=== PATIENT | male | born 1975 | race African-American/Black ===

== ENCOUNTER 2021-04-15 16:24 | Observation (INO) | payer OTHER ==
[2021-04-15 16:37] LABS: Glucose,Whole Blood 226 mg/dL (75-99)
[2021-04-15] MEDS ORDERED: PANTOPRAZOLE 40 MG/10 ML VIAL IVP STA (16:55)
[2021-04-15] MEDS ORDERED: SODIUM CHLORIDE 0.9% 1,000 ML IV STA (16:55)
[2021-04-15] MEDS ORDERED: ONDANSETRON 4 MG/2 ML VIAL IVP STA (16:55)
[2021-04-15] MEDS ORDERED: KETOROLAC 15 MG/ML 1 ML VIAL IVP STA (16:55)
[2021-04-15 17:32] LABS: Basophils % (A) 0 %; Eosinophils # (A) 0.1 k/uL (0-0.7); Eosinophils % (A) 1 %; HCT 44.4 % (39.0-53.0); HGB 15.1 gm/dL (13.0-17.5); Lymphocytes # (A) 1.5 k/uL (1.0-4.8); Lymphocytes % (A) 10 %; MCH 30.3 pg (25.0-35.0); MCV 89.3 fL (80.0-100.0); Mean Platelet Volume 7.6; Monocytes # (A) 0.3 k/uL (0-1.0); Monocytes % (A) 2 %; Neutrophils # (A) 13.5 k/uL (1.3-7.7); Neutrophils % (A) 87 %; Platelet Count 461 k/uL (150-450); RBC 4.97 m/uL (4.30-5.90); RDW 12.6 % (11.5-15.5); WBC 15.6 k/uL (3.8-10.6)
[2021-04-15 17:46] LABS: Albumin 5.1 g/dL (3.5-5.0); Calcium 10.3 mg/dL (8.4-10.2); Potassium 4.4 mmol/L (3.5-5.1); Total Bilirubin 1.2 mg/dL (0.2-1.3); Total Protein 8.5 g/dL (6.3-8.2)
[2021-04-15 17:53] LABS: Prothrombin Time 10.3 sec (9.0-12.0)
[2021-04-15 17:55] LABS: Partial Thromboplastin Time 21.5 sec (22.0-30.0)
--- NOTE | 2021-04-15 18:29 | ED ---
Abdominal Pain HPI - General Chief Complaint: Abdominal Pain Stated Complaint: vomiting Time Seen by Provider: 04/15/21 16:46 Source: patient, police, RN notes reviewed Mode of arrival: ambulatory Limitations: no limitations - History of Present Illness Initial Comments: Patient is a 45-year-old -[place] male that presents to the emergency department complaining of abdominal pain in the epigastric and left upper quadrant region. He notes that he's been been vomiting and nauseous for the past several days. He notes that he's had a hard time drinking eating anything. She denied any history of ulcers heartburn heart attack. He noted that eating food and drinking makes the pain worse. She did appear to be in moderate discomfort and pain while sitting up in bed during exam and interview. He denied any blood in his vomit. He denied any constipation diarrhea. He denied any chest pain shortness breath headache fever fatigue chills. - Related Data Home Medications Medication Instructions Recorded Confirmed Atorvastatin [Lipitor] 20 mg PO HS 04/15/21 04/15/21 DULoxetine HCL [Cymbalta] 30 mg PO HS 04/15/21 04/15/21 Docusate [Colace] 100 mg PO BID 04/15/21 04/15/21 Insulin Glargine [Lantus] 50 unit SQ HS 04/15/21 04/15/21 Insulin Regular [HumuLIN R] See Protocol SQ ACHS 04/15/21 04/15/21 Ondansetron HCl [Zofran] 4 mg PO TID PRN 04/15/21 04/15/21 Pantoprazole Sodium [Protonix] 40 mg PO DAILY 04/15/21 04/15/21 Sucralfate [Carafate] 1 gm PO TID 04/15/21 04/15/21 hydroCHLOROthiazide 25 mg PO DAILY 04/15/21 04/15/21 lisinopriL 20 mg PO DAILY 04/15/21 04/15/21 metFORMIN HCL [Glucophage] 850 mg PO BID 04/15/21 04/15/21 Allergies Allergy/AdvReac Type Severity Reaction Status Date / Time No Known Allergies Allergy Verified 04/15/21 18:46 Review of Systems ROS Statement: Those systems with pertinent positive or pertinent negative responses have been documented in the HPI. ROS Other: All systems not noted in ROS Statement are negative. Past Medical History Past Medical History: Diabetes Mellitus History of Any Multi-Drug Resistant Organisms: None Reported Past Surgical History: No Surgical Hx Reported Past Psychological History: No Psychological Hx Reported Smoking Status: Former smoker Past Alcohol Use History: None Reported Past Drug Use History: None Reported General Exam Limitations: no limitations General appearance: alert, in no apparent distress Head exam: Present: atraumatic, normocephalic, normal inspection Eye exam: Present: normal appearance, PERRL, EOMI. Absent: scleral icterus, conjunctival injection, periorbital swelling Neck exam: Present: normal inspection Respiratory exam: Present: normal lung sounds bilaterally. Absent: respiratory distress, wheezes, rales, rhonchi, stridor Cardiovascular Exam: Present: regular rate, normal rhythm, normal heart sounds. Absent: systolic murmur, diastolic murmur, rubs, gallop, clicks GI/Abdominal exam: Present: soft, normal bowel sounds. Absent: distended, tenderness, guarding, rebound, rigid Extremities exam: Present: normal inspection, full ROM, normal capillary refill. Absent: tenderness, pedal edema, joint swelling, calf tenderness Neurological exam: Present: alert, oriented X3 Psychiatric exam: Present: normal affect, normal mood Skin exam: Present: warm, dry, intact, normal color. Absent: rash Course Vital Signs 04/15/21 16:31 Temperature 99.7 F H Pulse Rate 108 H Respiratory 17 Rate Blood Pressure 117/85 O2 Sat by Pulse 100 Oximetry Medical Decision Making - Medical Decision Making 45-year-old male complaining of upper abdominal pain in the epigastric and upper left quadrant. Labs, 1 L normal saline, 4 mg of Zofran, CT of the abdomen and pelvis, EKG, quality assurance monitor chassis, 15 mg of Toradol, 40 mg of pantoprazole ordered. Labs: White blood cells 15.6 BU when 35, creatinine 2.14 glucose 235, lactic acid 2.5 amylase 137. Case discussed with Dr. Taylor, patient will be admitted for observation. Dr. Estevez was consulted and will accept the admit with GI on consult. - Lab Data Result diagrams: 04/15/21 17:11 04/15/21 17:11 Lab Results 04/15/21 04/15/21 04/15/21 Range/Units 16:35 17:11 17:11 WBC 15.6 H (3.8-10.6) k/uL RBC 4.97 (4.30-5.90) m/uL Hgb 15.1 (13.0-17.5) gm/dL Hct 44.4 (39.0-53.0) % MCV 89.3 (80.0-100.0) fL MCH 30.3 (25.0-35.0) pg MCHC 34.0 (31.0-37.0) g/dL RDW 12.6 (11.5-15.5) % Plt Count 461 H (150-450) k/uL MPV 7.6 Neutrophils % 87 % Lymphocytes % 10 % Monocytes % 2 % Eosinophils % 1 % Basophils % 0 % Neutrophils # 13.5 H (1.3-7.7) k/uL Lymphocytes # 1.5 (1.0-4.8) k/uL Monocytes # 0.3 (0-1.0) k/uL Eosinophils # 0.1 (0-0.7) k/uL Basophils # 0.0 (0-0.2) k/uL PT (9.0-12.0) sec INR (<1.2) APTT (22.0-30.0) sec Sodium 136 L (137-145) mmol/L Potassium 4.4 (3.5-5.1) mmol/L Chloride 94 L (98-107) mmol/L Carbon Dioxide 29 (22-30) mmol/L Anion Gap 13 mmol/L BUN 35 H (9-20) mg/dL Creatinine 2.14 H (0.66-1.25) mg/dL Est GFR (CKD-EPI)AfAm 42 (>60 ml/min/1.73 sqM) Est GFR (CKD-EPI)NonAf 36 (>60 ml/min/1.73 sqM) Glucose 235 H (74-99) mg/dL POC Glucose (mg/dL) 226 H (75-99) mg/dL POC Glu [employer] Professor ID Thomas Gallegos Plasma Lactic Acid Parth (0.7-2.0) mmol/L Calcium 10.3 H (8.4-10.2) mg/dL Total Bilirubin 1.2 (0.2-1.3) mg/dL AST 46 (17-59) U/L ALT 80 H (4-49) U/L Alkaline Phosphatase 90 (38-126) U/L Troponin I (0.000-0.034) ng/mL Total Protein 8.5 H (6.3-8.2) g/dL Albumin 5.1 H (3.5-5.0) g/dL Amylase 137 H (30-110) U/L Lipase 120 (23-300) U/L 04/15/21 04/15/21 04/15/21 Range/Units 17:11 17:11 17:11 WBC (3.8-10.6) k/uL RBC (4.30-5.90) m/uL Hgb (13.0-17.5) gm/dL Hct (39.0-53.0) % MCV (80.0-100.0) fL MCH (25.0-35.0) pg MCHC (31.0-37.0) g/dL RDW (11.5-15.5) % Plt Count (150-450) k/uL MPV Neutrophils % % Lymphocytes % % Monocytes % % Eosinophils % % Basophils % % Neutrophils # (1.3-7.7) k/uL Lymphocytes # (1.0-4.8) k/uL Monocytes # (0-1.0) k/uL Eosinophils # (0-0.7) k/uL Basophils # (0-0.2) k/uL PT 10.3 (9.0-12.0) sec INR 1.0 (<1.2) APTT 21.5 L (22.0-30.0) sec Sodium (137-145) mmol/L Potassium (3.5-5.1) mmol/L Chloride (98-107) mmol/L Carbon Dioxide (22-30) mmol/L Anion Gap mmol/L BUN (9-20) mg/dL Creatinine (0.66-1.25) mg/dL Est GFR (CKD-EPI)AfAm (>60 ml/min/1.73 sqM) Est GFR (CKD-EPI)NonAf (>60 ml/min/1.73 sqM) Glucose (74-99) mg/dL POC Glucose (mg/dL) (75-99) mg/dL POC Glu [employer] Professor ID Plasma Lactic Acid Parth 2.5 H* (0.7-2.0) mmol/L Calcium (8.4-10.2) mg/dL Total Bilirubin (0.2-1.3) mg/dL AST (17-59) U/L ALT (4-49) U/L Alkaline Phosphatase (38-126) U/L Troponin I <0.012 (0.000-0.034) ng/mL Total Protein (6.3-8.2) g/dL Albumin (3.5-5.0) g/dL Amylase (30-110) U/L Lipase (23-300) U/L - EKG Data -: EKG Interpreted by Me EKG shows normal: sinus rhythm Rate: normal EKG Comments: Ventricular rate 83 bpm, AL interval 146 ms, QRS duration 92 ms, QTC 415 ms, PRT axes 67/67/37. Normal sinus rhythm, no ECG. - Radiology Data Radiology results: report reviewed, image reviewed CT of the abdomen and pelvis: No acute abnormality of the abdomen pelvis. Normal appendix. Disposition Clinical Impression: Acute kidney injury, Fever, Lactic acidosis, Nausea & vomiting Disposition: ADMITTED IP TO THIS HOSP Condition: Stable Is patient prescribed a controlled substance at d/c from ED?: No Referrals: None,Stated [Primary Care Provider] - 1-2 days Time of Disposition: 19:08
[2021-04-15] MEDS ORDERED: ACETAMINOPHEN TAB 500 MG TAB PO STA (18:30)
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
[2021-04-15] MEDS ORDERED: MORPHINE SULFATE 4 MG/ML SYRINGE IV PRN (19:07)
[2021-04-15] MEDS ORDERED: NALOXONE 0.4 MG/ML 1 ML VIAL IV PRN (19:07)
[2021-04-15] MEDS: SODIUM CHLORIDE 0.9% 1,000 ML IV SCH (19:30)
[2021-04-15] MEDS ORDERED: METOCLOPRAMIDE 5 MG/ML 2 ML VIAL IVP PRN (22:16)
[2021-04-15] MEDS: ONDANSETRON 4 MG/2 ML VIAL IVP PRN (22:30)
[2021-04-15 23:04] LABS: Appearance,Urine Clear (Clear); Bilirubin,Urine Negative (Negative); Blood,Urine Negative (Negative); Color,Urine Yellow; Glucose,Urine (UA) Negative (Negative); Ketones,Urine 1+ (Negative); Leukocyte Esterase,Urine Negative (Negative); Nitrite,Urine Negative (Negative); Protein,Urine Negative (Negative); Specific Gravity,Urine 1.014 (1.001-1.035); Urobilinogen,Urine <2.0 mg/dL (<2.0)
--- NOTE | 2021-04-16 02:45 | HP ---
HISTORY AND PHYSICAL HISTORY OF PRESENT ILLNESS: 45-year-old male admitted with left upper quadrant pain, epigastric pain with vomiting and nausea for several days. He has elevated BUN and creatinine due to severe dehydration. Denies any history of ulcers, heart attacks or abdominal pain. Denies any fever, chills, and abdominal pain. Denies any blood in his vomit. Denies any shortness of breath, headache, fever, chills. MEDICATIONS: Home medicines Lipitor 20 daily, Cymbalta 30 daily, Colace 100 b.i.d., Lantus 60 units subcu daily, Humulin R a.c. and q.h.s., Zofran 4 mg t.i.d., Protonix 40 mg daily, Carafate 1 gram t.i.d., hydrochlorothiazide 25 mg daily, lisinopril 20 mg daily, metformin 850 b.i.d. ALLERGIES: Negative. REVIEW OF SYMPTOMS: 14 point review of systems negative except for mentioned in HPI. PAST MEDICAL HISTORY: Diabetes mellitus. SOCIAL HISTORY: Former smoker. No alcohol. No drugs. PHYSICAL EXAMINATION: Vital signs stable. Afebrile. CARDIOVASCULAR: S1, S2. LUNGS: Clear. GI soft. HEMATOLOGY: Negative Homans. Mild diffuse tenderness in the abdomen. NEUROLOGIC: Alert and orient x3. Temp 99.7, heart rate 108, respiratory 16 to 18, blood pressure 117/85, 100 percent on room air. CT abdomen and pelvis is normal. White count 15.6, BUN is 35, creatinine 2.14, glucose 235, lactic acid 2.5, amylase 137. ASSESSMENT: 1. Insulin-dependent diabetes mellitus. 2. Prerenal/renal insufficiency. 3. Severe dehydration. 4. Possible gastroenteritis. GI consult. Accu-Chek protocol. Rehydrate. Check electrolytes in the morning. Prognosis guarded. MMODL / IJN: [id number] /
[2021-04-16] MEDS: SUCRALFATE 1 GM TAB PO SCH ×4 (04:40→20:57)
[2021-04-16] MEDS: SODIUM CHLORIDE 0.9% 1,000 ML IV SCH ×3 (04:40→20:57)
[2021-04-16 07:59] LABS: Glucose,Whole Blood 111 mg/dL (75-99)
[2021-04-16] MEDS: INSULIN ASPART (NovoLOG) 100 UNIT/ML VIAL SQ SCH ×4 (08:05→20:57)
[2021-04-16] MEDS: ONDANSETRON 4 MG/2 ML VIAL IVP PRN (08:06)
[2021-04-16] MEDS ORDERED: PANTOPRAZOLE 40 MG TABLET PO SCH (09:00)
[2021-04-16] MEDS: DOCUSATE 100 MG CAP PO SCH ×2 (09:15→20:57)
[2021-04-16] MEDS: lisinopriL 20 MG TAB PO SCH (09:15)
[2021-04-16 09:22] LABS: Basophils # (A) 0.04 X 10*3/uL (0.00-0.10); Basophils % (A) 0.4 %; Eosinophils # (A) 0.08 X 10*3/uL (0.04-0.35); Eosinophils % (A) 0.8 %; HCT 36.7 % (39.6-50.0); HGB 12.5 g/dL (13.0-17.0); Lymphocytes # (A) 2.71 X 10*3/uL (0.90-5.00); Lymphocytes % (A) 27.1 %; MCH 29.8 pg (27.0-32.0); MCHC 34.1 g/dL (32.0-37.0); MCV 87.4 fL (80.0-97.0); Mean Platelet Volume 10.7 fL (9.5-12.2); Monocytes # (A) 0.68 X 10*3/uL (0.20-1.00); Monocytes % (A) 6.8 %; Neutrophils # (A) 6.46 X 10*3/uL (1.80-7.70); Neutrophils % (A) 64.7 %; Platelet Count 326 X 10*3/uL (140-440); RDW 11.7 % (11.5-14.5); WBC 9.99 X 10*3/uL (4.50-10.00)
--- NOTE | 2021-04-16 09:54 | US ---
EXAMINATION TYPE: US abdomen complete DATE OF EXAM: 04/16/2021 COMPARISON: NONE CLINICAL HISTORY: Abd pain; DAVE . pain EXAM MEASUREMENTS: Liver Length: 11.1 cm Gallbladder Wall: .2 cm CBD: .4 cm Spleen: 10.2 cm Right Kidney: 9.3 x 4.4 x 4.8 cm Left Kidney: 10.1 x 5.0 x 4.8 cm Pancreas: Obscured by bowel gas Liver: wnl Gallbladder: wnl Evidence for sonographic Conrad's sign: No CBD: wnl Spleen: wnl Right Kidney: wnl Left Kidney: wnl Upper IVC: wnl Abd Aorta: wnl The liver is homogenous. The intrahepatic portion of the IVC and proximal abdominal aorta are within normal limits. There is no evidence of cholelithiasis. Common bile duct is unremarkable. The visu alized portions of the pancreas are homogenous. The spleen is unremarkable. Kidneys are symmetric a nd free of hydronephrosis. No renal lesions are seen. IMPRESSION: No significant abnormality appreciated at this time.
[2021-04-16 11:49] LABS: African American GFR (CKD) 45.4 (60.0-200.0); Albumin 4.1 g/dL (3.80-4.90); Albumin/Globulin Ratio 1.28 (1.60-3.17); Anion Gap 15.9 mmol/L (4.00-12.00); BUN/Creat Ratio 19.5 Ratio (12.00-20.00); Carbon Dioxide 23.1 mmol/L (21.6-31.8); Globulin 3.2 g/dL (1.6-3.3); Non-African American GFR(CKD) 39.1 (60.0-200.0); Potassium 4.8 mmol/L (3.5-5.5); Total Bilirubin 0.9 mg/dL (0.3-1.2); Total Protein 7.3 g/dL (6.2-8.2)
[2021-04-16 11:56] LABS: Glucose,Whole Blood 262 mg/dL (75-99)
[2021-04-16] MEDS ORDERED: SCOPOLAMINE 1.5MG/72HR PATCH TRANSDERM SCH (12:00)
--- NOTE | 2021-04-16 14:42 | P.CONS ---
History of Present Illness - Reason for Consult Consult date: 04/16/21 Nausea and vomiting Requesting physician: Fred Kaiser - Chief Complaint Nausea and vomiting, abdominal pain - History of Present Illness This is a 46-year-old -[place] male who presented to the emergency department with complaints of abdominal pain, nausea and vomiting. He has a past medical history of diabetes mellitus diagnosed in 2002. He denies any hematemesis or coffee-ground emesis. He denies having any diarrhea, no sick contacts, no history of peptic ulcer disease or GERD. He states he recently started metformin, but this caused him nausea and vomiting and he stopped one week ago. He states he had similar symptoms years ago when he had elevated blood sugars. He does admit that his blood sugars have not been well controlled recently as he is having some social issues as well. He denies any use of NSAIDs. He had a CT of the abdomen and pelvis as part of his workup in the emergency department with no acute abnormality. With a normal appendix. Admitting labs WBC 15.6, hemoglobin 15, hematocrit 44, platelet count 461,000, amylase 137, lipase 103, total bilirubin 1.2, alkaline phosphatase 90, AST 46, ALT 80. Abdominal ultrasound was completed this morning with no significant findings. He states the nausea and vomiting occurs after he tries to eat or drink anything, he states he vomited 4-5 times yesterday. None today. Also st ates he has epigastric pain associated with the vomiting. He denies any fever or chills. No previous EGD or colonoscopy. Review of Systems REVIEW OF SYSTEMS: CARDIOPULMONARY: No chest pain or shortness of breath. Gastrointestinal: Epigastric pain.. Nausea and vomiting. No hematemesis, coffee-ground emesis. No rectal bleeding, or melena. No diarrhea. GENITOURINARY: No dysuria or hematuria. MUSCULOSKELETAL: Reports normal range of motion., Joint pain. SKIN: No rashes. No jaundice. ENDOCRINE: No chills, fevers. No excessive weight gain or loss. No polydipsia or polyuria. PSYCHIATRIC: Unremarkable. NEUROLOGY: No change in mental status. Denies dizziness, headache. ENT: Vision unremarkable. CONSTITUTIONAL: No recent weight loss. No fever, chills, night sweats. Past Medical History Past Medical History: Diabetes Mellitus History of Any Multi-Drug Resistant Organisms: None Reported Past Surgical History: No Surgical Hx Reported Past Psychological History: No Psychological Hx Reported Smoking Status: Former smoker Past Alcohol Use History: None Reported Past Drug Use History: None Reported Medications and Allergies Home Medications Medication Instructions Recorded Confirmed Type Atorvastatin [Lipitor] 20 mg PO HS 04/15/21 04/15/21 History DULoxetine HCL [Cymbalta] 30 mg PO HS 04/15/21 04/15/21 History Docusate [Colace] 100 mg PO BID 04/15/21 04/15/21 History Insulin Glargine [Lantus] 50 unit SQ HS 04/15/21 04/15/21 History Insulin Regular [HumuLIN R] See Protocol SQ ACHS 04/15/21 04/15/21 History Ondansetron HCl [Zofran] 4 mg PO TID PRN 04/15/21 04/15/21 History Pantoprazole Sodium [Protonix] 40 mg PO DAILY 04/15/21 04/15/21 History Sucralfate [Carafate] 1 gm PO TID 04/15/21 04/15/21 History hydroCHLOROthiazide 25 mg PO DAILY 04/15/21 04/15/21 History lisinopriL 20 mg PO DAILY 04/15/21 04/15/21 History metFORMIN HCL [Glucophage] 850 mg PO BID 04/15/21 04/15/21 History Allergies Allergy/AdvReac Type Severity Reaction Status Date / Time No Known Allergies Allergy Verified 04/15/21 18:46 Physical Exam Vitals: Vital Signs Temp Pulse Pulse Resp BP BP BP 04/16/21 08:00 16 04/16/21 07:00 98.4 F 104 H 16 131/84 04/16/21 02:00 98.1 F 92 18 112/73 04/15/21 20:39 98.1 F 87 16 151/92 04/15/21 20:13 98.3 F 93 18 151/89 04/15/21 16:31 99.7 F H 108 H 17 117/85 Pulse Ox 04/16/21 08:00 04/16/21 07:00 99 04/16/21 02:00 98 04/15/21 20:39 100 04/15/21 20:13 100 04/15/21 16:31 100 Intake and Output 04/15/21 04/16/21 04/16/21 22:59 06:59 14:59 Intake Total 1300 Balance 1300 Intake: Intake, IV Titration 1300 Amount Sodium Chloride 0.9% 1, 1300 000 ml @ 130 mls/hr IV . Q7H42M [facility] Rx#:[id number] Other: Voiding Method Urinal Urinal # Voids 1 Weight 74.843 kg General appearance: The patient is alert, oriented, appears in no acute distress. HET: Head is normocephalic and atraumatic. Conjunctiva pink. Sclera anicteric. Neck: Supple without lymphadenopathy. Trachea midline. Heart: S1 S2. Regular rate and rhythm. Lungs: Clear to auscultation. Abdomen: Soft, gastric tenderness, nondistended with bowel sounds. No guarding or rigidity. Skin: No rashes. No jaundice. Extremities: Normal skin color and turgor. No pedal edema. Neurological: No focal deficits. Alert and oriented 3.. Results CBC & Chem 7: 04/16/21 05:21 04/16/21 05:21 Labs: Abnormal Lab Results - Last 24 Hours (Table) 04/15/21 04/15/21 04/15/21 Range/Units 16:35 17:11 17:11 WBC 15.6 H (3.8-10.6) k/uL RBC (4.40-5.60) X 10*6/uL Hgb (13.0-17.0) g/dL Hct (39.6-50.0) % Plt Count 461 H (150-450) k/uL Neutrophils # 13.5 H (1.3-7.7) k/uL APTT (22.0-30.0) sec Sodium 136 L (137-145) mmol/L Chloride 94 L (98-107) mmol/L BUN 35 H (9-20) mg/dL Creatinine 2.14 H (0.66-1.25) mg/dL Glucose 235 H (74-99) mg/dL POC Glucose (mg/dL) 226 H (75-99) mg/dL Plasma Lactic Acid Parth (0.7-2.0) mmol/L Calcium 10.3 H (8.4-10.2) mg/dL ALT 80 H (4-49) U/L Total Protein 8.5 H (6.3-8.2) g/dL Albumin 5.1 H (3.5-5.0) g/dL Amylase 137 H (30-110) U/L Urine Ketones (Negative) 04/15/21 04/15/21 04/15/21 Range/Units 17:11 17:11 21:40 WBC (3.8-10.6) k/uL RBC (4.40-5.60) X 10*6/uL Hgb (13.0-17.0) g/dL Hct (39.6-50.0) % Plt Count (150-450) k/uL Neutrophils # (1.3-7.7) k/uL APTT 21.5 L (22.0-30.0) sec Sodium (137-145) mmol/L Chloride (98-107) mmol/L BUN (9-20) mg/dL Creatinine (0.66-1.25) mg/dL Glucose (74-99) mg/dL POC Glucose (mg/dL) (75-99) mg/dL Plasma Lactic Acid Parth 2.5 H* (0.7-2.0) mmol/L Calcium (8.4-10.2) mg/dL ALT (4-49) U/L Total Protein (6.3-8.2) g/dL Albumin (3.5-5.0) g/dL Amylase (30-110) U/L Urine Ketones 1+ H (Negative) 04/16/21 04/16/21 Range/Units 05:21 07:58 WBC (3.8-10.6) k/uL RBC 4.20 L (4.40-5.60) X 10*6/uL Hgb 12.5 L (13.0-17.0) g/dL Hct 36.7 L (39.6-50.0) % Plt Count (150-450) k/uL Neutrophils # (1.3-7.7) k/uL APTT (22.0-30.0) sec Sodium (137-145) mmol/L Chloride (98-107) mmol/L BUN (9-20) mg/dL Creatinine (0.66-1.25) mg/dL Glucose (74-99) mg/dL POC Glucose (mg/dL) 111 H (75-99) mg/dL Plasma Lactic Acid Parth (0.7-2.0) mmol/L Calcium (8.4-10.2) mg/dL ALT (4-49) U/L Total Protein (6.3-8.2) g/dL Albumin (3.5-5.0) g/dL Amylase (30-110) U/L Urine Ketones (Negative) CT scan - abdomen: report reviewed (No acute abnormality of the abdomen pelvis. Normal appendix.) US - abdomen: report reviewed (No abnormal findings.) Assessment and Plan (1) Abdominal pain Narrative/Plan: [id number] -[place] male who presented to the emergency department with complaints of nausea and vomiting for the last few days duration. He denies any hematemesis or coffee-ground emesis. No sick contacts, no associated diarrhea. States he has epigastric pain. He has a past medical history of diabetes mellitus, which he states his blood sugars have not been controlled recently. States he's had similar episodes in the past with uncontrolled blood sugar. He recently started metformin a couple weeks ago and was discontinued about one week ago due to nausea and vomiting associated with the medication. He had a CT of the abdomen and pelvis with no acute abnormality, gallbladder ultrasound shows no significant abnormality. He denies any use of NSAIDs, no previous history of peptic ulcer disease or GERD. No previous EGD or colonoscopy. Possible etiologies include gastritis, also could be advanced to elevated glucose levels, and possible gastroparesis from diabetes mellitus. At this time will continue antiemetics, change Protonix to 40 mg twice a day. Avoid NSAID use. Current Visit: Yes Status: Acute Code(s): R10.9 - UNSPECIFIED ABDOMINAL PAIN SNOMED Code(s): 50998551 (2) Nausea & vomiting Current Visit: Yes Status: Acute Code(s): R11.2 - NAUSEA WITH VOMITING, UNSPECIFIED SNOMED Code(s): 12307439 Plan: 1. Continue symptomatic and supportive care 2. Clear liquid diet, advance as tolerated 3. Increase Protonix to 40 mg twice a day 4. Continue antiemetics as needed 5. CT of abdomen and pelvis and a gallbladder ultrasound reviewed 6. Strict glycemic control 7. Further recommendations based on clinical course Thank you for this consultation, we will continue to follow Dr. Zendejas I agree with the dictator's note, documented as a scribe by Alondra Londono.
[2021-04-16 17:55] LABS: Glucose,Whole Blood 110 mg/dL (75-99)
[2021-04-16 20:01] LABS: Glucose,Whole Blood 197 mg/dL (75-99)
[2021-04-16] MEDS: PANTOPRAZOLE 40 MG/10 ML VIAL IVP SCH (20:56)
[2021-04-16] MEDS ORDERED: DULoxetine HCL 30 MG CAPSULE.DR PO SCH (21:00)
[2021-04-16] MEDS ORDERED: ATORVASTATIN 20 MG TAB PO SCH (21:00)
[2021-04-16] MEDS ORDERED: INSULIN ASPART (NovoLOG) 100 UNIT/ML VIAL SQ SCH (22:14)
[2021-04-17] MEDS: SODIUM CHLORIDE 0.9% 1,000 ML IV SCH (03:45)
--- NOTE | 2021-04-17 06:49 | PN ---
PROGRESS NOTE A 46-year-old male. He has had no vomiting today. No nausea. No diarrhea. He is going to have an EGD tomorrow. Seen by GI doctor. Cardiovascular S1-S2. Lungs clear. GI soft. Hematology negative Homans. Psych fair mood and affect. ASSESSMENT: 1. Possible gastroenteritis. 2. Prerenal renal insufficiency. 3. Dehydration. Continue current treatments. Rehydrate. EGD in the morning and then possible discharge. MMODL / IJN: [id number] /
[2021-04-17 07:01] LABS: ALT 58 U/L (4-49); AST 40 U/L (17-59); African American GFR (CKD) 72 (>60 ml/min/1.73 sqM); Albumin 3.4 g/dL (3.5-5.0); Albumin/Globulin Ratio 1.2; Alkaline Phosphatase 54 U/L (38-126); Anion Gap 3 mmol/L; Blood Urea Nitrogen 19 mg/dL (9-20); Calcium 8.6 mg/dL (8.4-10.2); Carbon Dioxide 28 mmol/L (22-30); Chloride 106 mmol/L (98-107); Globulin 2.8 g/dL; Glucose 118 mg/dL (74-99); Non-African American GFR(CKD) 62 (>60 ml/min/1.73 sqM); Potassium 4.2 mmol/L (3.5-5.1); Sodium 137 mmol/L (137-145); Total Protein 6.2 g/dL (6.3-8.2)
[2021-04-17] MEDS: INSULIN ASPART (NovoLOG) 100 UNIT/ML VIAL SQ SCH ×2 (07:24→12:04)
[2021-04-17 07:33] LABS: Glucose,Whole Blood 115 mg/dL (75-99)
[2021-04-17 08:32] VITALS: TEMP 97.6
[2021-04-17] MEDS: PANTOPRAZOLE 40 MG/10 ML VIAL IVP SCH (08:45)
[2021-04-17] MEDS: SUCRALFATE 1 GM TAB PO SCH (09:07)
[2021-04-17] MEDS: DOCUSATE 100 MG CAP PO SCH (09:07)
[2021-04-17] MEDS: lisinopriL 20 MG TAB PO SCH (09:07)
[2021-04-17 09:38] LABS: Basophils # (A) 0.04 X 10*3/uL (0.00-0.10); Basophils % (A) 0.5 %; Eosinophils # (A) 0.16 X 10*3/uL (0.04-0.35); HCT 33.7 % (39.6-50.0); HGB 11.3 g/dL (13.0-17.0); Lymphocytes # (A) 2.96 X 10*3/uL (0.90-5.00); Lymphocytes % (A) 37.6 %; MCH 30.1 pg (27.0-32.0); MCHC 33.5 g/dL (32.0-37.0); MCV 89.6 fL (80.0-97.0); Mean Platelet Volume 10.5 fL (9.5-12.2); Monocytes # (A) 0.49 X 10*3/uL (0.20-1.00); Monocytes % (A) 6.2 %; Neutrophils # (A) 4.21 X 10*3/uL (1.80-7.70); Neutrophils % (A) 53.4 %; Platelet Count 275 X 10*3/uL (140-440); RBC 3.76 X 10*6/uL (4.40-5.60); RDW 11.7 % (11.5-14.5); WBC 7.88 X 10*3/uL (4.50-10.00)
[2021-04-17 11:59] LABS: Glucose,Whole Blood 110 mg/dL (75-99)
[2021-04-17] MEDS ORDERED: fentaNYL (PF) 50 MCG/ML 2 ML AMP ONE (13:50)
[2021-04-17] MEDS ORDERED: PROPOFOL 10 MG/ML 20 ML VIAL IV ONE (13:50)
[2021-04-17] MEDS ORDERED: MIDAZOLAM 2 MG/2 ML VIAL ONE (13:50)
[2021-04-17] MEDS ORDERED: IV FLUID CONTINUATION 1,000 ML IV ONE ×2 (13:51)
--- NOTE | 2021-04-17 14:01 | P.PCN ---
Date of Procedure: 04/17/21 Procedure(s) Performed: BRIEF HISTORY: Patient is a 46-year-old, pleasant,male admitted hospital with nausea vomiting for the last few days duration. He scheduled for an upper endoscopy to evaluate further. Long-standing history of diabetes mellitus PROCEDURE PERFORMED: Esophagogastroduodenoscopy with biopsy. PREOPERATIVE DIAGNOSIS: Nausea vomiting for the last few days duration. IV sedation per anesthesia. PROCEDURE: After informed consent was obtained, the patient was brought into the endoscopy unit. IV sedation was administered by Anesthesia under continuous monitoring. Initially the Olympus GIF-140 video endoscope was inserted into the mouth. Esophagus intubated without any difficulty. It was gradually advanced into the stomach and duodenum and carefully examined. The bulb and the second part of the duodenum appeared normal. The scope at this time was withdrawn to the stomach, adequately insufflated with air, and upon careful examination, mucosa of the antrum, had minimal antral gastritis and biopsies were done from this area. The body, cardia and the fundus appeared normal. The scope was then withdrawn into the esophagus. The GE junction was located at 39 cm from the incisors. The esophagus appeared normal. There were no erosions or ulcerations seen and the patient tolerated the procedure well. IMPRESSION: 1. Minimal antral gastritis. 2. No evidence of esophagitis, peptic ulcer disease or gastric outlet obstruction. RECOMMENDATIONS: The findings of this examination were discussed with the patient . Continue with Protonix 40 mg daily and antiemetics as needed. Diet will be advanced as tolerated...
[2021-04-17 15:00] VITALS: RESP 18
[2021-04-17 15:02] VITALS: BP 120/73; PULSE 85
== END 2021-04-17 16:35 ==
LOC: EC 16:24 → 6NMEDSUR 20:00
PROVIDERS: ADMIT Family Medicine; ATTEND Family Medicine
DX: N17.9 Acute kidney failure, unspecified (principal); E86.0 Dehydration; E11.9 Type 2 diabetes mellitus without complications; K29.50 Unspecified chronic gastritis without bleeding; R10.12 Left upper quadrant pain; R10.13 Epigastric pain; E87.2 Acidosis; R11.2 Nausea with vomiting, unspecified; E78.5 Hyperlipidemia, unspecified; Z79.4 Long term (current) use of insulin; Z79.899 Other long term (current) drug therapy; Z87.891 Personal history of nicotine dependence
CPT/HCPCS: 43239; 96376 ×2; 96361; 96375 ×2; 96374; 99285; 36415; 93005; 88305; 80053 ×3; 82150; 83605; 83690; 84484; 85025 ×3; 85610; 85730; 81003; 76700; 74176; G0378 ×3; J2250; J2270; J2405 ×2; J3010; J1885; J2704; C9113 ×3